=== PATIENT | female | born 1955 | race Caucasian/White ===

== ENCOUNTER → 2023-11-21 07:36 | Outpatient (CLI) | payer OTHER, SELFPAY ==
--- NOTE | 2023-11-21 07:41 | DI.NM.S_ITS ---
PROCEDURE: NM EXERCISE TREADMILL NON NUC COMPARISON: None INDICATIONS: Chest tightness, hypertension FINDINGS: Rest ECG sinus rhythm. Jayme protocol 5:09, maximum heart rate 144 BPM (96% peak predicted), maximum blood pressure 182/80, 7.0 METS, VASHTI +10%. Exercise ECG sinus tachycardia, no ST segment changes. Occasional PVCs noted in recovery. Patient did not complain of exercise-induced chest discomfort. IMPRESSION: Low risk study. No evidence of exercise-induced ischemia or arrhythmia. Normal hemodynamic response. Slightly reduced exercise capacity. Dictated by: Patricia Dang D.O. on 11/21/2023 at 16:25 Approved by: Patricia Dang D.O. on 11/21/2023 at 16:27
== END ==
LOC: RAD 07:40
PROVIDERS: PCP Student in an Organized Health Care Education/Training Program; Referring Provider Student in an Organized Health Care Education/Training Program; Visit Provider Student in an Organized Health Care Education/Training Program
DX: R07.89 Other chest pain (principal); I10 Essential (primary) hypertension
CPT/HCPCS: 93017

== ENCOUNTER → 2023-12-26 16:08 | Outpatient (CLI) | payer OTHER, SELFPAY | LOC: RESP 16:09 | PROVIDERS: PCP Student in an Organized Health Care Education/Training Program; Referring Provider Student in an Organized Health Care Education/Training Program; Visit Provider Student in an Organized Health Care Education/Training Program | DX: R06.02 Shortness of breath (principal); Z87.891 Personal history of nicotine dependence; R94.2 Abnormal results of pulmonary function studies | CPT/HCPCS: 94060; 94726; 94729 ==